=== PATIENT | female | born 1970 | race Hispanic/Latino ===

== ENCOUNTER 2018-03-07 15:13 | Outpatient (CLI) | payer BC | END 2018-03-07 15:14 | disposition home or self-care (01) | LOC: BICMAMMO 15:13 | PROVIDERS: ATTEND Family Medicine | DX: Z12.31 Encounter for screening mammogram for malignant neoplasm of breast (principal) | CPT/HCPCS: 77063; 77067 ==

== ENCOUNTER 2021-01-26 20:10 | Observation (INO) | payer BC ==
[2021-01-26 20:47] LABS: #Basophils 0.1 thou/uL (0.0-0.2); #Eosinphils 0.1 thou/uL (0.0-0.7); #Lymphocytes 2.7 thou/uL (1.20-3.40); #Monocytes 0.5 thou/uL (0.11-0.59); #Neutrophils 2.8 thou/uL (1.40-6.50); %Basophils 1.2 % (0.0-1.0); %Eosinophils 2.1 % (0.0-10.0); %Lymphocytes 43.2 % (21.0-51.0); %Monocytes 7.4 % (0.0-10.0); %Neutrophils 46.1 % (42.0-75.0); Hemoglobin 12.4 g/dL (12.0-16.0); Mean Corpuscular HGB CONC 34.1 g/dL (32.0-36.0); Mean Corpuscular Hemoglobin 30.3 pg (27.0-31.0); Mean Corpuscular Volume 88.9 fL (78.0-98.0); Mean Platelet Volume 7.1 fL (7.4-10.4); Platelet Count 317 thou/uL (130-400); RBC Distribution Width 12.5 % (11.5-14.5); Red Blood Cell (RBC) Count 4.07 mill/uL (4.20-5.40); White Blood Cell (WBC) Count 6.1 thou/uL (4.8-10.8)
[2021-01-26 21:09] LABS: ALT (SGPT) 24 U/L (8-55); AST (SGOT) 18 U/L (5-34); Albumin 4.5 g/dL (3.5-5.0); Alkaline Phosphatase 108 U/L (40-110); Anion Gap 15 mmol/L (10-20); BUN (Urea Nitrogen) 10 mg/dL (9.8-20.1); Bilirubin, Total 0.2 mg/dL (0.2-1.2); Calc. Creatinine Clearance 0 mL/min (70-130); Calcium 9.6 mg/dL (7.8-10.44); Carbon Dioxide 23 mmol/L (22-29); Chloride 107 mmol/L (98-107); Glucose 114 mg/dL (70-105); Potassium 3.8 mmol/L (3.5-5.1); Protein, Total 7.5 g/dL (6.0-8.3); Sodium 141 mmol/L (136-145)
[2021-01-26] MEDS ORDERED: Lorazepam 2 MG/ML VIAL ONE (21:22)
[2021-01-26] MEDS ORDERED: Meclizine HCl 25 MG TAB ONE (21:23)
[2021-01-26] MEDS ORDERED: Aspirin 325 MG TAB ONE (21:23)
[2021-01-26 21:39] LABS: Magnesium 1.8 mg/dL (1.6-2.6)
[2021-01-26] MEDS ORDERED: Ondansetron ODT 4 MG TAB PO PRN (23:47)
[2021-01-26] MEDS ORDERED: Dextrose 50% Abboject 50 ML SYRINGE SLOW IVP PRN (23:50)
[2021-01-26] MEDS ORDERED: Dextrose 5% in Water 1,000 ML IV PRN (23:50)
[2021-01-26] MEDS ORDERED: HumaLOG 300 UNITS/3 ML VIAL SC PRN ×2 (23:50)
[2021-01-27 02:18] VITALS: BMI 43.6
[2021-01-27 05:40] LABS: Hemoglobin A1c 6.1 % (4.0-6.0)
[2021-01-27 05:55] LABS: Cardiac Risk 3.8 (Less than 4.5)
[2021-01-27] MEDS ORDERED: metFORMIN 500 MG TAB PO SCH (08:00)
[2021-01-27] MEDS ORDERED: BENAZEPRIL PO SCH (09:00)
[2021-01-27] MEDS ORDERED: AMLODIPINE BESYLATE PO SCH (09:00)
[2021-01-27] MEDS ORDERED: Aspirin 81 mg Enteric Coated Tablet PO SCH ×2 (09:00)
[2021-01-27 11:49] VITALS: BP 109/78; TEMP 97.7
[2021-01-27] MEDS ORDERED: Simvastatin 5 MG TAB PO SCH (21:00)
== END 2021-01-27 14:32 | disposition home or self-care (01) ==
LOC: ERS 20:10 → 2SE 23:15
PROVIDERS: ADMIT Internal Medicine; ATTEND Internal Medicine
DX: H81.10 Benign paroxysmal vertigo, unspecified ear (principal); E11.9 Type 2 diabetes mellitus without complications; E78.5 Hyperlipidemia, unspecified; I10 Essential (primary) hypertension; K21.9 Gastro-esophageal reflux disease without esophagitis; F41.9 Anxiety disorder, unspecified; Z79.4 Long term (current) use of insulin; Z79.82 Long term (current) use of aspirin; Z79.899 Other long term (current) drug therapy
CPT/HCPCS: 36415; 36416; 70450; 70551; 71045; 80053; 80061; 83036; 83690; 83735; 83880; 84443; 84484; 85025; 93005; 96374; G0378; J2060

== ENCOUNTER 2025-03-01 13:05 | Outpatient (CLI) | payer BC | END 2025-03-01 13:06 | disposition home or self-care (01) | LOC: BICMAMMO 13:05 | PROVIDERS: ATTEND Family Medicine | DX: Z12.31 Encounter for screening mammogram for malignant neoplasm of breast (principal) | CPT/HCPCS: 77063; 77067 ==